=== PATIENT | male | born 1955 | race Two or more races ===

== ENCOUNTER 2019-02-14 07:00 | Inpatient (IN) | payer OTHER ==
[~2019-02-14] VITALS: Ht 157.5 cm; Wt 61.2 kg
[2019-02-14] MEDS ORDERED: ALBUTEROL2.5 MG/3 M (07:36)
== END 2019-02-21 12:39 | disposition home or self-care (01) | DRG 708 ==
LOC: ADM 07:00 → EDSTATUS 07:00 → SURH 02-19 06:01 → O/R 02-19 06:01 → SURH 02-19 07:00
PROVIDERS: ADMIT Urology
PROC: 0VT30ZZ Resection of Bilateral Seminal Vesicles, Open Approach (ICD-10-PCS; 2019-02-19)
PROC: 07TC0ZZ Resection of Pelvis Lymphatic, Open Approach (ICD-10-PCS; principal; 2019-02-19 11:45)
DX: C61 Malignant neoplasm of prostate (principal)

== ENCOUNTER 2019-08-20 11:32 | Outpatient (CLI) | payer OTHER ==
[~2019-08-20 11:32] MED LIST: ALBUTEROL2.5 MG/3 M
== END 2019-08-20 11:42 | disposition home or self-care (01) ==
LOC: LAB 11:32
DX: N30.10 Interstitial cystitis (chronic) without hematuria (principal)

== ENCOUNTER 2023-02-23 07:43 | Outpatient (CLI) | payer OTHER | END 2023-02-23 07:48 | disposition home or self-care (01) | LOC: NUCLEAR 07:43 | PROVIDERS: ATTEND Internal Medicine Pulmonary Disease | DX: C61 Malignant neoplasm of prostate (principal); J45.50 Severe persistent asthma, uncomplicated; R91.1 Solitary pulmonary nodule; Z57.31 Occupational exposure to environmental tobacco smoke; Z86.16 Personal history of COVID-19 | CPT/HCPCS: 78815; A9552 ==

== ENCOUNTER 2024-11-12 06:49 | Day surgery (SDC) | payer OTHER ==
[2024-11-10 11:20] VITALS: BP 149/53
[2024-11-10 12:58] LABS: CALCIUM 9.1 mg/dL (8.5-10.1); CREATININE SERUM 0.93 mg/dL (0.70-1.30); GFR 80.8; POTASSIUM 4.11 mEq/L (3.5-5.1)
[~2024-11-12] VITALS: Ht 157.5 cm; Wt 62.6 kg
[2024-11-12] MEDS ORDERED: CEFTRIAXONE SODIUM 2,000 MG VIAL IV ONE (13:30)
[2024-11-12] MEDS ORDERED: ENOXAPARIN SODIUM 40 MG/0.4 ML SYRINGE SUBCUTANEO ONE (13:30)
[2024-11-12] MEDS ORDERED: METRONIDAZOLE/SODIUM CHLORIDE 500 MG/100 ML PIGGYBACK IV ONE (13:30)
[2024-11-12] MEDS ORDERED: BUPIVACAINE HCL 30 ML VIAL IJ ONE (13:30)
[2024-11-12] MEDS ORDERED: SUGAMMADEX SODIUM 200 MG/2 ML VIAL IV ONE (15:15)
[2024-11-12] MEDS ORDERED: MORPHINE SULFATE 4 MG/ML VIAL IV ONE ×2 (15:30→16:00)
[2024-11-12] MEDS ORDERED: NEURONTIN300 MG PO (15:44)
[2024-11-12] MEDS ORDERED: PERCOCET 5-3251 EACH PO (15:44)
[2024-11-12] MEDS ORDERED: POLY119PG PO (15:44)
== END 2024-11-12 19:05 | disposition home or self-care (01) ==
LOC: CIR.AMB 06:49
PROVIDERS: ATTEND Surgery
DX: K40.90 Unilateral inguinal hernia, without obstruction or gangrene, not specified as recurrent (principal); Z88.6 Allergy status to analgesic agent; J45.909 Unspecified asthma, uncomplicated; H26.9 Unspecified cataract